=== PATIENT | female | born 1965 | race Caucasian/White ===

== ENCOUNTER 2023-05-02 13:32 | Emergency (ER) | payer OTHER ==
[2023-05-02] MEDS ORDERED: Acetaminophen/HYDROcodone 325-5 MG Tab PO ONE (13:53)
== END 2023-05-02 16:00 | disposition home or self-care (01) ==
LOC: FB.ED 13:32
DX: S92.355A Nondisplaced fracture of fifth metatarsal bone, left foot, initial encounter for closed fracture (principal); Z88.5 Allergy status to narcotic agent; X50.1XXA Overexertion from prolonged static or awkward postures, initial encounter
CPT/HCPCS: 73610; 73630; 99283; A9270